=== PATIENT | female | born 1980 | race Caucasian/White ===

== ENCOUNTER 2017-10-17 22:32 | Emergency (ER) | payer BC ==
--- NOTE | 2017-10-17 22:41 | ED ---
General Adult HPI - General Chief complaint: Chest Pain Stated complaint: Chest pain Time Seen by Provider: 10/17/17 22:38 Source: patient, family, RN notes reviewed, old records reviewed Mode of arrival: wheelchair - History of Present Illness Initial comments: This is a 29-year-old female the ER for evaluation. She is presented for evaluation regards to chest pain. Anterior chest pain substernal chest pain rating to left shoulder. No jaw pain. Patient has no medical history has no high blood pressure not questionable diabetes. No abdominal pain currently. Patient has no surgical history. No recent travel history no sick contacts no fevers no cough or congestion. Patient states pain started tonight, was worse when she was walking on started prior to arrival. Patient denies any increase in stress or anxiety at this time - Related Data Allergies Allergy/AdvReac Type Severity Reaction Status Date / Time shellfish derived Allergy Itching Verified 10/17/17 22:37 Review of Systems ROS Statement: Those systems with pertinent positive or pertinent negative responses have been documented in the HPI. ROS Other: All systems not noted in ROS Statement are negative. Past Medical History Past Medical History: No Reported History History of Any Multi-Drug Resistant Organisms: None Reported Past Surgical History: Orthopedic Surgery Additional Past Surgical History / Comment(s): right ankle , thyroid duct Past Psychological History: ADD/ADHD Smoking Status: Never smoker Past Alcohol Use History: Rare Past Drug Use History: None Reported General Exam General appearance: alert, in no apparent distress Head exam: Present: atraumatic, normocephalic, normal inspection Eye exam: Present: normal appearance, PERRL, EOMI. Absent: scleral icterus, conjunctival injection, periorbital swelling ENT exam: Present: normal exam, mucous membranes moist Neck exam: Present: normal inspection. Absent: tenderness, meningismus, lymphadenopathy Respiratory exam: Present: normal lung sounds bilaterally. Absent: respiratory distress, wheezes, rales, rhonchi, stridor Cardiovascular Exam: Present: regular rate, normal rhythm, normal heart sounds. Absent: systolic murmur, diastolic murmur, rubs, gallop, clicks GI/Abdominal exam: Present: soft, normal bowel sounds. Absent: distended, tenderness, guarding, rebound, rigid Extremities exam: Present: normal inspection, full ROM, normal capillary refill. Absent: tenderness, pedal edema, joint swelling, calf tenderness Back exam: Present: normal inspection Neurological exam: Present: alert, oriented X3, CN II-XII intact Psychiatric exam: Present: normal affect, normal mood Skin exam: Present: warm, dry, intact, normal color. 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 Patient is low risk cardiac patient. Patient can be discharged home - Lab Data Result diagrams: 10/17/17 22:50 10/17/17 22:50 Lab Results 10/17/17 10/17/17 10/17/17 Range/Units 22:50 22:50 22:50 WBC 7.5 (3.8-10.6) k/uL RBC 4.85 (3.80-5.40) m/uL Hgb 14.5 (11.4-16.0) gm/dL Hct 41.9 (34.0-46.0) % MCV 86.4 (80.0-100.0) fL MCH 29.9 (25.0-35.0) pg MCHC 34.6 (31.0-37.0) g/dL RDW 13.0 (11.5-15.5) % Plt Count 267 (150-450) k/uL Neutrophils % 62 % Lymphocytes % 27 % Monocytes % 5 % Eosinophils % 3 % Basophils % 1 % Neutrophils # 4.6 (1.3-7.7) k/uL Lymphocytes # 2.1 (1.0-4.8) k/uL Monocytes # 0.4 (0-1.0) k/uL Eosinophils # 0.2 (0-0.7) k/uL Basophils # 0.1 (0-0.2) k/uL PT (9.0-12.0) sec INR (<1.2) APTT (22.0-30.0) sec D-Dimer (<0.60) mg/L FEU Sodium 138 (137-145) mmol/L Potassium 4.0 (3.5-5.1) mmol/L Chloride 104 (98-107) mmol/L Carbon Dioxide 24 (22-30) mmol/L Anion Gap 10 mmol/L BUN 12 (7-17) mg/dL Creatinine 0.60 (0.52-1.04) mg/dL Est GFR (CKD-EPI)AfAm >90 (>60 ml/min/1.73 sqM) Est GFR (CKD-EPI)NonAf >90 (>60 ml/min/1.73 sqM) Glucose 86 (74-99) mg/dL Calcium 9.2 (8.4-10.2) mg/dL Magnesium 1.9 (1.6-2.3) mg/dL Total Bilirubin 0.3 (0.2-1.3) mg/dL AST 24 (14-36) U/L ALT 51 (9-52) U/L Alkaline Phosphatase 44 (38-126) U/L Total Creatine Kinase 85 (30-135) U/L CK-MB (CK-2) 0.8 (0.0-2.4) ng/mL CK-MB (CK-2) Rel Index 0.9 Troponin I <0.012 (0.000-0.034) ng/mL NT-Pro-B Natriuret Pep pg/mL Total Protein 7.3 (6.3-8.2) g/dL Albumin 4.1 (3.5-5.0) g/dL Lipase 88 (23-300) U/L 10/17/17 10/17/17 Range/Units 22:50 22:50 WBC (3.8-10.6) k/uL RBC (3.80-5.40) m/uL Hgb (11.4-16.0) gm/dL Hct (34.0-46.0) % MCV (80.0-100.0) fL MCH (25.0-35.0) pg MCHC (31.0-37.0) g/dL RDW (11.5-15.5) % Plt Count (150-450) k/uL Neutrophils % % Lymphocytes % % Monocytes % % Eosinophils % % Basophils % % Neutrophils # (1.3-7.7) k/uL Lymphocytes # (1.0-4.8) k/uL Monocytes # (0-1.0) k/uL Eosinophils # (0-0.7) k/uL Basophils # (0-0.2) k/uL PT 9.6 (9.0-12.0) sec INR 1.0 (<1.2) APTT 23.0 (22.0-30.0) sec D-Dimer 0.22 (<0.60) mg/L FEU Sodium (137-145) mmol/L Potassium (3.5-5.1) mmol/L Chloride (98-107) mmol/L Carbon Dioxide (22-30) mmol/L Anion Gap mmol/L BUN (7-17) mg/dL Creatinine (0.52-1.04) mg/dL Est GFR (CKD-EPI)AfAm (>60 ml/min/1.73 sqM) Est GFR (CKD-EPI)NonAf (>60 ml/min/1.73 sqM) Glucose (74-99) mg/dL Calcium (8.4-10.2) mg/dL Magnesium (1.6-2.3) mg/dL Total Bilirubin (0.2-1.3) mg/dL AST (14-36) U/L ALT (9-52) U/L Alkaline Phosphatase (38-126) U/L Total Creatine Kinase (30-135) U/L CK-MB (CK-2) (0.0-2.4) ng/mL CK-MB (CK-2) Rel Index Troponin I (0.000-0.034) ng/mL NT-Pro-B Natriuret Pep 84 pg/mL Total Protein (6.3-8.2) g/dL Albumin (3.5-5.0) g/dL Lipase (23-300) U/L - Radiology Data Radiology results: report reviewed (CTA chest and pelvis negative for acute disease), image reviewed Disposition Clinical Impression: Chest pain Disposition: HOME SELF-CARE Condition: Good Instructions: Chest Pain (ED) Is patient prescribed a controlled substance at d/c from ED?: No Referrals: Osmany Zurita MD [Primary Care Provider] - 1-2 days
[2017-10-17 23:03] LABS: Basophils # (A) 0.1 k/uL (0-0.2); Basophils % (A) 1 %; Eosinophils # (A) 0.2 k/uL (0-0.7); Eosinophils % (A) 3 %; HCT 41.9 % (34.0-46.0); HGB 14.5 gm/dL (11.4-16.0); Lymphocytes # (A) 2.1 k/uL (1.0-4.8); Lymphocytes % (A) 27 %; MCH 29.9 pg (25.0-35.0); MCHC 34.6 g/dL (31.0-37.0); MCV 86.4 fL (80.0-100.0); Mean Platelet Volume 6.4; Monocytes # (A) 0.4 k/uL (0-1.0); Monocytes % (A) 5 %; Neutrophils # (A) 4.6 k/uL (1.3-7.7); Neutrophils % (A) 62 %; Platelet Count 267 k/uL (150-450); RBC 4.85 m/uL (3.80-5.40); WBC 7.5 k/uL (3.8-10.6)
[2017-10-17 23:11] LABS: ALT 51 U/L (9-52); AST 24 U/L (14-36); Albumin 4.1 g/dL (3.5-5.0); Alkaline Phosphatase 44 U/L (38-126); Anion Gap 10 mmol/L; Blood Urea Nitrogen 12 mg/dL (7-17); Calcium 9.2 mg/dL (8.4-10.2); Carbon Dioxide 24 mmol/L (22-30); Chloride 104 mmol/L (98-107); Glucose 86 mg/dL (74-99); Lipase 88 U/L (23-300); Magnesium 1.9 mg/dL (1.6-2.3); Sodium 138 mmol/L (137-145); Total Bilirubin 0.3 mg/dL (0.2-1.3); Total Protein 7.3 g/dL (6.3-8.2)
[2017-10-17 23:13] LABS: Creatine Kinase 85 U/L (30-135)
[2017-10-17 23:15] LABS: D-Dimer 0.22 mg/L FEU (<0.60); Prothrombin Time 9.6 sec (9.0-12.0)
--- NOTE | 2017-10-17 23:19 | XR ---
EXAMINATION TYPE: XR chest 2V DATE OF EXAM: 10/17/2017 COMPARISON: NONE HISTORY: Chest pain TECHNIQUE: Frontal and lateral views of the chest are obtained. FINDINGS: Heart and mediastinum are normal. Lungs are clear. Diaphragm is normal. There are chest le ads. Bony thorax is intact. IMPRESSION: Normal chest
[2017-10-17 23:26] LABS: Creatine Kinase MB 0.8 ng/mL (0.0-2.4); Troponin I <0.012 ng/mL (0.000-0.034)
--- NOTE | 2017-10-18 00:36 | CT ---
EXAMINATION TYPE: CT angio chest DATE OF EXAM: 10/18/2017 12:25 AM COMPARISON: NONE HISTORY: Chest pain, r/o pe, Uyk002/100ml, no previous, not CT DLP: 1435.80 mGycm Automated exposure control for dose reduction was used. CONTRAST: CTA scan of the thorax is performed with IV Contrast, patient injected with 100 mL of Isovue 370, pul monary embolism protocol. There are 3-D post processed images.. FINDINGS: The lungs are clear of infiltrate. There is no evidence of a pulmonary mass. There is no pleural effu williams. There is no pericardial effusion. There is no mediastinal adenopathy. Thoracic aorta appears normal. There is no evidence of aneurysm o r dissection. There are no filling defects in the pulmonary arteries. There are no hilar masses. The bony thorax is intact. IMPRESSION: NORMAL CT ANGIOGRAM OF THE CHEST. NO EVIDENCE OF PULMONARY EMBOLISM.
--- NOTE | 2017-10-18 00:40 | CT ---
EXAMINATION TYPE: CT abdomen pelvis w con DATE OF EXAM: 10/18/2017 COMPARISON: NONE HISTORY: Chest pain, abd pain CT DLP: 1435.80 mGycm Automated exposure control for dose reduction was used. TECHNIQUE: Helical acquisition of images was performed from the lung bases through the pelvis. CONTRAST: Performed without Oral Contrast and with IV Contrast, patient injected with 100 mL of Isovue 370. FINDINGS: Lung bases are clear. There is no pleural effusion. Liver spleen pancreas gallbladder appear normal. Bile ducts are not dilated. There is no adrenal mass. Kidneys show satisfactory contrast opacificatio n. There is no hydronephrosis. There is no retroperitoneal adenopathy. Appendix appears normal. Bladd er distends smoothly. There is no ascites. I see no intestinal wall thickening. There are no dilated loops. Bony structures appear intact. Uterus is anteverted. There is no evidence of free air. IMPRESSION: Normal CT scan of the abdomen and pelvis.
[2017-10-18 01:30] VITALS: BP 123/89; PULSE 74; RESP 17; TEMP 97.8
== END 2017-10-18 01:34 | disposition home or self-care (01) ==
LOC: EC 22:32
DX: R07.2 Precordial pain (principal); Z91.013 Allergy to seafood
CPT/HCPCS: 36415; 93005; 85379; 83880; 80053; 82550; 82553; 83690; 83735; 84484; 85025; 85610; 85730; 71046; 71275; 74177; 99285; Q9967

== ENCOUNTER → 2020-02-15 | Outpatient (CLI) | payer BC ==
--- NOTE | 2020-02-15 12:40 | ECHOF ---
Referral Reason:R00.2 palpitations MEASUREMENTS -------- HEIGHT: 160.0 cm WEIGHT: 65.3 kg BP: RVIDd: 3.0 cm (< 3.3) IVSd: 1.0 cm (0.6 - 1.1) LVIDd: 3.2 cm (3.9 - 5.3) LVPWd: 1.2 cm (0.6 - 1.1) IVSs: 1.4 cm LVIDs: 2.0 cm LVPWs: 1.5 cm LAESV Index (A-L): 11.68 ml/m Ao Diam: 2.6 cm (2.0 - 3.7) AV Cusp: 1.9 cm (1.5 - 2.6) MV EXCURSION: 19.441 mm (> 18.000) MV EF SLOPE: 74 mm/s (70 - 150) EPSS: 0.4 cm MV E Donaldo: 0.81 m/s MV DecT: 224 ms MV A Donaldo: 0.74 m/s MV E/A Ratio: 1.08 RAP: 5.00 mmHg RVSP: 27.86 mmHg FINDINGS -------- Sinus rhythm. This was a technically adequate study. The left ventricular size is normal. There is borderline concentric left ventricular hypertrophy. There is normal global left ventricular contractility. Overall left ventricular systolic function is low-normal with, an EF between 50 - 55 %. The diastolic filling pattern is normal for the age of the patient 9.39. The right ventricle is normal in size. Normal LA size by volume 22+/-6 ml/m2. The right atrial size is normal. Interatrial and interventricular septum intact. There is no evidence of aortic regurgitation. There is no evidence of aortic stenosis. No mitral regurgitation. Mild tricuspid regurgitation present. There is no evidence of pulmonary hypertension. The right v entricular systolic pressure, as measured by Doppler, is 27.86mmHg. There is no pulmonic regurgitation present. The aortic root size is normal. Normal inferior vena cava with normal inspiratory collapse consistent with estimated right atrial pre ssure of 5 mmHg. There is no pericardial effusion. CONCLUSIONS -------- 1. The left ventricular size is normal. 2. There is borderline concentric left ventricular hypertrophy. 3. There is normal global left ventricular contractility. 4. Overall left ventricular systolic function is low-normal with, an EF between 50 - 55 %. 5. The diastolic filling pattern is normal for the age of the patient 9.39 6. Mild tricuspid regurgitation present. TRANSITION SPECIALIST: Kathryn Gabriel RDCS
== END | disposition home or self-care (01) ==
LOC: RADECHMAIN 11:56
PROVIDERS: ATTEND Nurse Practitioner Adult Health
DX: I07.1 Rheumatic tricuspid insufficiency (principal)
CPT/HCPCS: 93306

== ENCOUNTER → 2021-11-10 | Outpatient (CLI) | payer BC ==
--- NOTE | 2021-11-13 09:03 | CA ---
Stress Echo Report Cindi Cobb Age: 41 Gender: F : 1980 Exam Date: 11/10/2021 09:48 Exam Location: [facility] Ht (in): 63 Wt (lb): 167 Ordering Physician: Osmany Zurita MD Referring Physician: Yudith RODRÍGUEZ Radio Operator: LORI Technologist Procedure CPT: Indication: R00.2 palpitations ICD-9 Codes: Rhythm: Patient History: Chest Pain, Palpitations Cardiac Medications: Medications in past 24 hours: Contrast: Stress Results Protocol: Steven Total dose(mL): Exercise Duration (min:sec): Max ST Depression (mm): Angina Score: Bowden Score: METS: 7.7 Resting HR: 75 Resting BP: 113 / 71 Peak HR: 167 Peak BP: 178 / 60 Max Predicted HR: 178 94 % Max Predicted HR Target HR: 151 Double Product: 22275 Stress Summary: BP Response: Reason for Termination: Reached target heart rate or work-load Cardiac Symptoms: Dyspnea ECG Analysis Resting ECG: Stress ECG: Arrhythmia: Echo Analysis Resting Echo: Peak Echo Analysis: MEASUREMENTS (Male/Female) Normal Values CONCLUSIONS Patient underwent exercise stress echo with a Steven protocol treadmill stress test. Patient exercised into Stage 2 for a total of 6 minutes 28 seconds reaching a total of 7.7 METS. Patient's maximum heart rate was 167 which represented 93 % age- predicted maximum heart rate. Stress EKG portion: At baseline patient's EKG showed normal sinus rhythm, normal axis, no significant ST or T wave abnormalities. At peak exercise, EKG showed nonspecific 0.[address] depressions in the inferior and lateral leads. Stress echo portion: 2-D echocardiogram was performed in the parasternal long, personal short, apical 2 and apical four-chamber views at rest, peak exercise and in recovery. At baseline, echocardiogram showed left ventricular ejection fraction 55% without wall motion abnormalities. With peak exercise, echocardiogram shows improvement in left ventricular ejection fraction, increase contractility, decrease in left ventricular end systolic dimension without wall motion abnormalities consistent with a normal response to exercise. Conclusions: 1. Normal EKG and echo response to exercise without evidence of inducible ischemia. 2. Fair exercise capacity. 3. Normal left ventricular ejection fraction 55% Dr. Red Thomas DO (Electronically Signed) Final Date: 13 November 2021 09:02
== END | disposition home or self-care (01) ==
LOC: RADNMMAIN 09:16
PROVIDERS: ATTEND Family Medicine
DX: R00.2 Palpitations (principal)
CPT/HCPCS: 93351

== ENCOUNTER 2022-04-29 10:30 | Emergency (ER) | payer OTHER, BC ==
[2022-04-29 10:38] VITALS: RESP 18
[2022-04-29] MEDS ORDERED: ORPHENADRINE 30 MG/ML 2 ML VIAL IM STA (10:56)
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
[2022-04-29 12:30] VITALS: BP 126/78; PULSE 80; TEMP 98
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
== END 2022-04-29 12:30 | disposition home or self-care (01) ==
LOC: EC 10:30
DX: M54.2 Cervicalgia (principal); Z88.8 Allergy status to other drugs, medicaments and biological substances; V43.52XA Car driver injured in collision with other type car in traffic accident, initial encounter
CPT/HCPCS: 99283; 72050; 73110; 96372; J2360

== ENCOUNTER → 2024-08-07 | Outpatient (CLI) | payer BC, OTHER ==
--- NOTE | 2024-08-07 08:22 | US ---
EXAMINATION TYPE: US abdomen complete DATE OF EXAM: 08/07/2024 COMPARISON: CT ABD/PEL 10/18/2017 CLINICAL INDICATION: Female, 43 years old with history of R10.12 LUQ PAIN x 2.5 weeks. Hx renal stone s; Urinary frequency TECHNIQUE: Grayscale and color Doppler imaging of the abdomen was performed. FINDINGS: EXAM MEASUREMENTS: Liver Length: 14.7 cm Gallbladder Wall: 0.2 cm CBD: 0.5 cm, color Doppler imaging was utilized to isolate the common bile duct for measurement. Spleen: 9.2 cm Right Kidney: 10.2 x 5.2 x 4.7 cm Left Kidney: 11.6 x 6.4 x 4.1 cm [employer] NOTES: Pancreas: wnl Liver: wnl, no dilated ducts; ? Dilated duct vs cyst = 2.0 x 1.2 x 1.1 cm Gallbladder: wnl Evidence for sonographic Disla's sign: No CBD: wnl Spleen: wnl Right Kidney: wnl, No hydronephrosis, calculi or masses seen Left Kidney: wnl, No hydronephrosis, calculi or masses seen Upper IVC: wnl Abd Aorta: wnl The liver is homogenous with a right hepatic lobe 2.0 cm anechoic region which may represent a cyst v ersus focally dilated biliary duct. The intrahepatic portion of the IVC and proximal abdominal aorta are within normal limits. There is no evidence of cholelithiasis. Common bile duct is unremarkable . The visualized portions of the pancreas are homogenous. The spleen is unremarkable. Kidneys are symmetric and free of hydronephrosis. No renal lesions are seen. IMPRESSION: Right hepatic lobe 2.0 cm anechoic region which may represent a cyst versus focally dilated biliary d uct. Recommend further evaluation with MR abdomen/MRCP. [facility], , 08/07/2024 8:19 AM
== END | disposition home or self-care (01) ==
LOC: RADUSWWP 06:49
PROVIDERS: ATTEND Family Medicine
DX: R10.12 Left upper quadrant pain (principal); Z87.442 Personal history of urinary calculi
CPT/HCPCS: 76700

== ENCOUNTER → 2024-09-14 | Outpatient (CLI) | payer BC, OTHER ==
--- NOTE | 2024-09-14 14:04 | MR ---
EXAMINATION TYPE: MR MRCP DATE OF EXAM: 09/14/2024 9:30 AM COMPARISON: CT abdomen and pelvis October 18, 2017 . Ultrasound abdomen August 07, 2024 CLINICAL INDICATION: Female, 43 years old with history of R16.0 HEPATOMEGALY, NOT ELSEWHERE CLASSIFIE D, LUQ pain, abnormal US,liver cyst f/u. IV Contrast: cc (None if empty) Standard multiplanar, multisequence MRI departmental protocol Multiplanar, multisequence images of the abdomen were acquired without contrast. Diffusion weighted i maging was performed. Thin and thick slice MRCP imaging is performed on an independent workstation FINDINGS: Liver/gallbladder/pancreas/biliary system: Liver remains normal in size. No significant signal dropou t identified. There is near 1.0 cm round lesion of T2 hyperintensity favoring simple thin-walled cyst series 601 image 26 likely corresponding to area of concern on ultrasound. No internal dependent gal lstones and gallbladder. Pancreas is normal in size. No suspicious masses. MRCP images show no biliar y or pancreatic ductal dilatation. Other: Lung bases are clear. The spleen and both adrenal glands are within normal limits. No suspicio us renal masses or hydronephrosis is seen bilaterally. Patient has little internal fat. No abnormal b owel dilatation. No AAA. Osseous structures are intact. IMPRESSION: No biliary dilatation. Lesion of concern on ultrasound and noncontrast MRI favors simple benign thin-walled cyst. Advise repeat imaging in 1 year time to reassess. [facility], , 09/14/2024 2:02 PM
== END | disposition home or self-care (01) ==
LOC: RADMRIMAIN 07:55
PROVIDERS: ATTEND Family Medicine
DX: R16.0 Hepatomegaly, not elsewhere classified (principal)
CPT/HCPCS: 74181